=== PATIENT | male | born 1995 | race Two or more races ===

== ENCOUNTER 2022-05-19 10:34 | Emergency (ER) | payer SELFPAY ==
[~2022-05-19] VITALS: Ht 180.3 cm; Wt 87.7 kg
[2022-05-19 15:20] VITALS: BP 132/71
[2022-05-19] MEDS ORDERED: KETOROLAC TROMETH 60MG/2ML VIAL IM ONE (15:45)
[2022-05-19] MEDS ORDERED: HYDR-4902 PO (15:54)
== END 2022-05-19 16:02 | disposition home or self-care (01) ==
LOC: ER 10:34
DX: S16.1XXA Strain of muscle, fascia and tendon at neck level, initial encounter (principal); M54.6 Pain in thoracic spine; V43.52XA Car driver injured in collision with other type car in traffic accident, initial encounter; Y93.89 Activity, other specified; Y92.410 Unspecified street and highway as the place of occurrence of the external cause; Y99.8 Other external cause status
CPT/HCPCS: 72040; 96372; 99283; J1885